=== PATIENT | male | born 1950 | race Caucasian/White ===

== ENCOUNTER 2016-10-21 09:14 | Emergency (ER) | payer BC, MEDICARE, OTHER ==
[2016-10-21 09:27] VITALS: BP 140/83
--- NOTE | 2016-10-21 09:51 | UC ---
Lower Extremity/Ankle HPI - HPI Summary HPI Summary: c/o redness, warmth, swelling, and pain to anterior right knee. Denies any injury. Was working on the knee a lot lately fixing his car and also had 5 cookies yesterday and noticed the pain last night and the redness today. Denies fevers. No bug bites or scratching of the skin . no falls or injury. no snapping of the knee. pain last night. takes NSAIds for chronic back pain . [ End ] - History of Current Complaint Chief Complaint: UCLowerExtremity Stated Complaint: RIGHT KNEE PAIN Time Seen by Provider: 10/21/16 09:45 Hx Obtained From: Patient Onset/Duration: Gradual Onset Severity Initially: Moderate Severity Currently: Moderate Aggravating Factor(s): Standing Alleviating Factor(s): Rest Able to Bear Weight: Yes - Allergies/Home Medications Allergies/Adverse Reactions: Allergies Allergy/AdvReac Type Severity Reaction Status Date / Time No Known Allergies Allergy Verified 10/21/16 09:26 Home Medications: Home Medications Pravastatin (NF) [Pravachol (NF)] 10 mg PO 1700 10/21/16 [History Confirmed ] PMH/Surg Hx/FS Hx/Imm Hx Previously Healthy: Yes Endocrine History: Dyslipidemia - Surgical History Surgical History: None - Social History Occupation: Retired Lives: With Family Alcohol Use: Daily Alcohol Amount: 3-4 beer daily Substance Use Type: None Smoking Status (MU): Never Smoked Tobacco Review of Systems Constitutional: Negative Skin: Negative Eyes: Negative ENT: Negative Respiratory: Negative Cardiovascular: Negative Gastrointestinal: Negative Genitourinary: Negative Motor: Negative Neurovascular: Negative Musculoskeletal: Arthralgia Neurological: Negative Psychological: Negative All Other Systems Reviewed And Are Negative: Yes Physical Exam Triage Information Reviewed: Yes Appearance: Well-Appearing, No Pain Distress, Ill-Appearing Vital Signs: Initial Vital Signs Temp 98.7 F 10/21/16 09:22 Pulse 95 10/21/16 09:22 Resp 16 10/21/16 09:22 BP 140/83 10/21/16 09:22 Pulse Ox 100 10/21/16 09:22 Vital Signs Reviewed: Yes Eye Exam: Normal Respiratory Exam: Normal Cardiovascular Exam: Normal Musculoskeletal: Positive: Strength Intact, ROM Intact, Other: - right knee with diffuse redness and erythema anterior knee. tenderness to palpation. no ballotment. neg Lachmans. non tender popliteal fossa. neg homans. no break in skin. skin warm and red to tough on the knee. 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
== END 2016-10-21 10:12 | disposition home or self-care (01) ==
LOC: UCCORT 09:14
DX: M25.561 Pain in right knee (principal); E78.5 Hyperlipidemia, unspecified
CPT/HCPCS: 99202; G0463